=== PATIENT | male | born 1990 | race Two or more races ===

== ENCOUNTER 2016-12-05 19:07 | Emergency (ER) | payer SELFPAY ==
[~2016-12-05] VITALS: Ht 188 cm; Wt 85.5 kg
[2016-12-05 19:15] VITALS: BP 135/81
[2016-12-05] MEDS ORDERED: DIPH,PERTUSS(ACELL),TET VAC/PF 0.5 ML IM-VACC ONE (20:00)
[2016-12-05] MEDS ORDERED: BACITRACIN ZINC OINT 500U/GM, 0.9 GM ONE (20:27)
== END 2016-12-05 20:40 | disposition home or self-care (01) ==
LOC: ED 20:34
DX: S61.401A Unspecified open wound of right hand, initial encounter (principal); S60.811A Abrasion of right wrist, initial encounter; S20.319A Abrasion of unspecified front wall of thorax, initial encounter; W54.0XXA Bitten by dog, initial encounter; Y93.89 Activity, other specified; Y92.89 Other specified places as the place of occurrence of the external cause; Y99.8 Other external cause status
CPT/HCPCS: 99284